=== PATIENT | female | born 1995 | race African-American/Black ===

== ENCOUNTER → 2017-10-20 19:21 | Outpatient (CLI) | payer OTHER, SELFPAY ==
[2017-10-26 10:12] LABS: HPV APTIMA, High Risk Negative (Negative)
== END ==
PROVIDERS: Family Provider Internal Medicine; PCP Internal Medicine; Visit Provider Obstetrics & Gynecology
DX: Z12.4 Encounter for screening for malignant neoplasm of cervix (principal)
CPT/HCPCS: 88175; G0145

== ENCOUNTER → 2018-06-01 15:29 | Outpatient (CLI) | payer OTHER, SELFPAY ==
[2018-05-31 16:33] VITALS: BMI 17.2
[2018-06-01 16:53] LABS: ALB/GLOB Ratio 1.3 RATIO (0.9-2.4); AST(SGOT) 20 U/L (15-37); Alanine Aminotransfer ALT/SGPT 33 U/L (13-56); Albumin, Serum 4.3 g/dL (3.2-5.0); Alkaline Phosphatase 69 U/L (45-117); Anion Gap 9 (5-15); BUN 8 mg/dL (7-18); BUN/Creat Ratio 10.5 RATIO (10-20); Calcium,Total 8.8 mg/dL (8.5-10.1); Chloride 108 mmol/L (98-107); Creatinine, Serum 0.76 mg/dL (0.55-1.02); EST Glomerular Filtration Rate 98 mL/min (>60); Est Glom Filt Rate - Afr Amer 119 mL/min (>60); Globulin 3.2 g/dL (2.2-4.2); Glucose 79 mg/dL (74-106); Potassium 3.6 mmol/L (3.5-5.1); Protein, Total 7.5 g/dL (6.4-8.2); Sodium Level 141 mmol/L (136-145); Thyroid Stim Hormone (TSH) 0.76 uIU/mL (0.358-3.74)
[2018-06-01 19:44] LABS: Absolute Lymphocyte Count 0.74 X10^3/ul (0.83-4.51); Absolute Neutrophil Count 3.8 X10^3/uL (2.0-7.7); Basophil# 0.01 X10^3/uL; Basophil% 0.2 % (0-1); Eosinophil# 0.03 X10^3/uL; Eosinophils% 0.6 % (0-5); Hematocrit 44.4 % (37-47); Hemoglobin 15.2 g/dl (12.0-15.0); Lymphocyte # 0.74 X10^3/ul (4.0); Lymphocyte % 14.3 % (19-41); Mean Corp Hgb Conc 34.2 g/gl (32-36); Mean Corpuscular Hgb 31.6 pg (27.0-32.0); Mean Corpuscular Volume 92.3 fL (81-99); Mean Platelet Vol. 9.3 fl (6.2-12.0); Monocyte# 0.57 X10^3/uL; Neutrophil # 3.83 X10^3/uL (2.7-7.7); Neutrophil % 73.7 % (47-70); Platelet Count 147 K/mm3 (150-450); RBC Distribution Width CV 13.3 % (11.6-14.6); RBC Distribution Width SD 44.9 fl (35.1-43.9); Red Blood Count 4.81 M/mm3 (4.2-5.4); White Blood Count 5.2 K/mm3 (4.4-11.0)
[2018-06-01 19:57] LABS: POSITIVE COUNT NO; POSITIVE DIFFERENTIAL NO; POSITIVE MORPHOLOGY NO
== END ==
PROVIDERS: Family Provider Family Medicine; PCP Family Medicine; Referring Provider Family Medicine; Visit Provider Family Medicine
DX: R53.83 Other fatigue (principal)
CPT/HCPCS: 36415; 80053; 84443; 85025

== ENCOUNTER → 2018-06-29 16:56 | Outpatient (CLI) | payer OTHER, SELFPAY ==
[2018-06-29 15:15] VITALS: BMI 17.6
== END ==
PROVIDERS: Family Provider Family Medicine; PCP Family Medicine; Referring Provider Obstetrics & Gynecology; Visit Provider Obstetrics & Gynecology
DX: N75.0 Cyst of Bartholin's gland (principal)
CPT/HCPCS: 87070; 87077; 87205

== ENCOUNTER → 2018-07-20 13:19 | Outpatient (CLI) | payer OTHER, SELFPAY ==
[2018-05-31 16:33] VITALS: BMI 17.2
[2018-06-29 15:15] VITALS: BMI 17.6
--- NOTE | 2018-07-20 13:31 | CT_ITS ---
STUDY: CT CHEST WITHOUT CONTRAST REASON FOR EXAM: Female, 22 years old. Calcium scoring. Family history of [place]. Over read examination. RADIATION DOSAGE (If Supplied By Facility): CTDIvol = ( 12.19 ) mGy, DLP = ( 195.04 ) mGycm TECHNIQUE: Transaxial imaging was performed without the administration of intravenous contrast material. Individualized dose optimization techniques were used for this CT. COMPARISON: None. FINDINGS: The lungs are normal. There is no demonstrated pleural abnormality. Normal heart and pericardium. Normal mediastinum. Normal hilar regions. Normal unenhanced pulmonary arteries. Normal aorta arch and descending thoracic aorta. Normal osseous structures. There is no demonstrated abnormality of the visualized upper abdomen. CT/Limited Chest CT w/CCTA IMPRESSION: Normal unenhanced CT Chest examination. Electronically Signed: Pasha Larson MD at 10:52 EST , Service support ,
[2018-07-20 13:43] VITALS: BP 113/54; PULSE 44; RESP 16; O2SAT 100; BMI 16.9
--- NOTE | 2018-07-20 14:00 | ECHOD_ITS ---
Reason For Study: Abn EKG Procedure This was a 2D Doppler, Color Flow transthoracic echocardiogram. Exam performed in department. Left Ventricle Normal LV size. Left ventricular systolic function is normal. The estimated ejection fraction is 60 %. No evidence for diastolic dysfunction. No regional wall motion abnormalities noted. Right Ventricle Normal RV size. Normal systolic function. Atria Normal left atrium. Normal right atrium. Mitral Valve Mild mitral valve prolapse. Mild (1+) eccentric mitral valve insufficiency. Tricuspid Valve Normal tricuspid valve. Mild tricuspid valve insufficiency. Pulmonary artery systolic pressure is 30 mmHg. Aortic Valve Normal aortic valve. Trisinus/trileaflet aortic valve. Pulmonic Valve Normal pulmonic valve. Great Vessels Normal aortic root. The pulmonary artery is normal size. Normal inferior vena cava. Pericardium/Pleural No pericardial effusion. MMode/2D Measurements & Calculations LVIDd: 4.6 cm IVSd: 0.84 cm Ao root diam: 2.0 cm LVIDs: 3.0 cm LVPWd: 0.92 cm RVDd: 3.5 cm FS: 34.1 % LAV(MOD-bp): 40.6 ml LVAd ap4: 26.8 cm2 SV(MOD-sp4): 57.1 ml LAV(MOD-bp) Indexed: 28.0 ml/m2 EDV(MOD-sp4): 86.8 ml LAV(MOD-sp2): 41.2 ml EDV(sp4-el): 90.1 ml LAV(MOD-sp4): 29.6 ml LVAs ap4: 14.3 cm2 ESV(MOD-sp4): 29.8 ml ESV(sp4-el): 29.7 ml EF(MOD-sp4): 65.7 % EF(sp4-el): 67.1 % SV(sp4-el): 60.4 ml LA A4 area: 13.9 cm2 LA dimension(2D): 3.3 cm RA A4 area: 9.8 cm2 Doppler Measurements & Calculations MV E max tariq: 74.7 cm/sec Lat Peak E' Tariq: 11.7 cm/sec Med Peak E' Tariq: 9.6 cm/sec MV A max tariq: 50.2 cm/sec E/E' lat: 6.4 E/E' med: 7.8 MV E/A: 1.5 Ao V2 max: 110.0 cm/sec LV V1 max: 97.0 cm/sec PA V2 max: 106.4 cm/sec Ao max P.8 mmHg LV V1 max P.8 mmHg Ao V2 mean: 77.5 cm/sec Ao mean P.7 mmHg Ao V2 VTI: 25.8 cm TR max tariq: 254.7 cm/sec TR max P.9 mmHg Interpretation Summary Normal LV size. Left ventricular systolic function is normal. The estimated ejection fraction is 60 %. No evidence for diastolic dysfunction. Mild mitral valve prolapse. Mild (1+) eccentric mitral valve insufficiency. Ordering Physician: Alisa Justin Referring Physician: Alisa Justin Performed By: Cecelia Jackson, JENNIFER, RVT
--- NOTE | 2018-07-20 15:23 | CA.SCORE ---
Calcium Scoring Date of Study:: 07/20/18 Coronary Calcium Scoring: Coronary calcium scoring. High-resolution computed tomographic imaging of the chest was performed on 07/20/2018 with particular attention paid to the coronary arteries. Images from the examination were analyzed for the presence and extent of coronary artery calcification using the coronary calcification quantification software. The patient tolerated the procedure well there were no complications. The results of the coronary consultation analysis are provided below. Coronary artery score Left main score 0 Left anterior descending artery score 0 Left circumflex artery score 0 Right coronary artery score 0 Total Agagston score 0 Based on the above there is no identifiable atherosclerotic plaque noted patient is at very low atherosclerotic cardiovascular risk.
== END ==
PROVIDERS: Family Provider Family Medicine; PCP Family Medicine; Referring Provider Internal Medicine; Visit Provider Internal Medicine
DX: R94.31 Abnormal electrocardiogram [ECG] [EKG] (principal); Z82.49 Family history of ischemic heart disease and other diseases of the circulatory system
CPT/HCPCS: 75571; 76380; 93306

== ENCOUNTER → 2018-08-17 14:11 | Outpatient (CLI) | payer OTHER, SELFPAY ==
[2018-07-20 13:43] VITALS: BMI 16.9
--- NOTE | 2018-08-17 14:14 | RAD_ITS ---
STUDY: X-RAY - RIGHT ANKLE REASON FOR EXAM: Female, 23 years old. Pain following a twisting injury. TECHNIQUE: 3 view(s) of the ankle. COMPARISON: None. FINDINGS: Normal visualized distal tibia and fibula. Normal medial and lateral malleoli. Normal tibiotalar articulation and ankle mortise. Normal visualized talus and calcaneus. The visualized subtalar, talonavicular, calcaneocuboid and tarsal articulations are normal. The soft tissue structures are unremarkable. RAD/Ankle min 3 Views IMPRESSION: Normal x-ray examination of the ankle. Electronically Signed: Pasha Larson, at 14:35 EDT , Service support ,
== END ==
PROVIDERS: Family Provider Family Medicine; PCP Family Medicine; Referring Provider Nurse Practitioner; Visit Provider Nurse Practitioner
DX: S93.401A Sprain of unspecified ligament of right ankle, initial encounter (principal)
CPT/HCPCS: 73610

== ENCOUNTER → 2018-11-20 | Outpatient (CLI) | payer OTHER, SELFPAY ==
[2018-11-20 11:10] VITALS: BMI 16.9
[2018-11-20 13:42] LABS: HIV - WCH Non-Reactive (Nonreactive)
[2018-11-20 17:27] LABS: Chlamydia Trachomatis by PCR Negative (Negative); Neisserai gonorrhoeae by PCR Negative (Negative); Probe Check PASS; Sample Adequacy Control PASS; Specimen Processing Control PASS
== END | disposition home or self-care (01) ==
PROVIDERS: Family Provider Family Medicine; PCP Family Medicine; Referring Provider Obstetrics & Gynecology; Visit Provider Obstetrics & Gynecology
DX: Z11.3 Encounter for screening for infections with a predominantly sexual mode of transmission (principal)
CPT/HCPCS: 36415; 86703; 87491; 87591

== ENCOUNTER 2018-12-27 12:39 | Day surgery (SDC) | payer OTHER, SELFPAY ==
[2018-11-20 11:10] VITALS: BMI 16.9
[2018-12-18 16:21] VITALS: BMI 16.9
--- NOTE | 2018-12-26 22:14 | HP.PCM_ITS ---
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 Is patient in pain?: No Allergies No Known Allergies Allergy (Verified 12/18/18 16:20) Medications multivitamin tablet 1 tab PO QDAY 10/20/17 [History Confirmed 12/18/18] omega 5-emk-yal-fish oil 1,000 mg (120 mg-180 mg) capsule cap PO cap 05/31/18 [History Confirmed 12/18/18] eszopiclone 1 mg tablet 1 mg PO QHS #20 tab 11/20/18 [Rx Confirmed 12/18/18] norethindrone 1 mg-ethinyl estradiol 20 mcg (24)-iron 75 mg (4) tablet 1 tab PO QDAY #28 tab 11/20/18 [Rx Confirmed 12/18/18] Is last menstrual period known: No Post menopausal: No Patient : No : No [facility] Medical History Heart murmur (Chronic) Seasonal allergies (Chronic) History of seizures (Acute) Migraines (Acute) Family History Uncle Cancer Grandmother Diabetes Heart disease Grandfather Cancer Heart disease Myocardial infarction Father Diabetes Mother Asthma Aunt Breast cancer maternal aunt Social History (Updated 12/19/18 @ 04:19 by Marya Diehl MD) Smoking Status: Never smoker alcohol intake: current details: occasionally substance use type: does not use caffeine: Yes what type of physical activity do you participate in: running frequency: 3-4 times per week seatbelt use: sometimes do you feel safe at home: Yes additional social history: Single- Patient works at [employer]. Patient is also in grad school HPI pre op: Details: JARETT MAHONEY is a 23 year old who presents for preoperative visit. she is having a bartholin's gland cyst marsupilization. Pregancy History 0 Elective abortions Hx Para Spontaneous abortions Hx # Term Pregnancies Ectopic pregnancies Hx # Pregnancies Multiple births # of living children ROS Const Constitutional: Reports as per HPI; denies fatigue, increased appetite, poor appetite, weight gain or weight loss Cardio Card: Denies chest pain Resp Resp: Denies cough or dyspnea GI GI: Reports as per HPI; denies abdominal pain, bloating, constipation, nausea or vomiting : Reports as per HPI and other; denies difficulty urinating, painful urination, blood in urine, nipple discharge, pelvic pain, prolapse symptoms, urinary frequency, urinary incontinence, urinary urgency, vaginal discharge, vaginal dryness, vaginal odor or vaginal itching Skin Skin/Breast: Denies nipple discharge Psych Psych: Denies anxiety or depression Exam Const General: cooperative, healthy appearing, comfortable, no acute distress, well developed, well groomed HENMT Head: normal to inspection, normocephalic Ears: hearing grossly normal bilaterally, external ears normal Nose: external nose normal Face and sinus: normal facial exam Neck Neck: normal visual inspection, full ROM, no lymphadenopathy Thyroid: thyroid normal Chest Chest palpation & inspection: normal inspection of the chest Breast inspection: normal inspection of the breasts, normal inspection of the axillae Breast palpation: normal palpation of the breasts, normal palpation of the axillae, no axillary lymphadenopathy Resp Effort & Inspection: normal respiratory effort GI Inspection: normal to inspection, non-distended Palpation: soft, no hepatosplenomegaly, no guarding General: bladder normal to palpation External Female Exam: normal external appearance, normal appearance of the urethra, external lesions, bartholin cyst (left side non tender 4cm) Urethra: normal appearance of the urethra Speculum Exam - Vagina: normal appearance of the vagina, normal vaginal discharge Speculum Exam - Cervix: normal appearance of the cervix, no cervical discharge, no lesions, nontender Bimanual Exam- Vagina & Uterus: bladder normal to palpation, No cervical tenderness Bimanual Exam- Adnexa, other: normal adnexae, no adnexal masses, adnexae non- tender Skin General: no rashes or lesions noted Neuro General: alert, moves all extremities, no focal motor deficits Extrem General: normal to inspection, no pedal edema Psych Appearance: grossly normal Mental Status: mental status grossly normal Affect: normal affect Speech and Movement: speech and movement normal Attitude: cooperative Assessment & Plan Problems 1. Bartholin gland cyst N75.0 recurrent, plan marsupilization Plan discussed with patient risk of bleeding, infection, scarring, dyspareunia. proceed with surgery. Coding Level of Care Code No Charge Diagnoses Bartholin gland cyst N75.0 UPDATE- I have seen the patient and performed any clinically relevant updates to the history and physical exam. Marya Diehl MD
[2018-12-27 13:09] VITALS: BP 111/70; PULSE 61; RESP 18; TEMP 37.1; O2SAT 100; BMI 17.9
[2018-12-27 13:11] LABS: Internal QC Validated? YES +Cl - CLEAR BKGD; Pregnancy, Urine Negative Negative
[2018-12-27 13:18] LABS: Hematocrit 42.8 % (37-47); Hemoglobin 15.1 g/dL (12.0-15.0); Mean Corp Hgb Conc 35.3 g/dL (32-36); Mean Corpuscular Hgb 32.6 pg (27.0-32.0); Mean Corpuscular Volume 92.4 fL (81-99); Mean Platelet Vol. 9.1 fl (6.2-12.0); Platelet Count 187 K/mm3 (150-450); RBC Distribution Width CV 12.9 % (11.6-14.6); RBC Distribution Width SD 44.3 fl (35.1-43.9); Red Blood Count 4.63 M/mm3 (4.2-5.4); White Blood Count 4.1 K/mm3 (4.4-11.0)
[2018-12-27] MEDS: Bupiv/Epi 0.25% 30 ML Vial (15:02)
[2018-12-27] MEDS: Bacitracin 500 UNITS/GM PACKET (15:27)
[2018-12-27 15:37] VITALS: BP 111/70; BP 114/72; PULSE 59; RESP 16; TEMP 36.7; O2SAT 100
[2018-12-27 15:45] VITALS: BP 111/70; BP 122/83; PULSE 82; RESP 16; O2SAT 100
[2018-12-27 16:00] VITALS: BP 111/70; BP 126/63; PULSE 70; RESP 16; O2SAT 99
--- NOTE | 2018-12-27 16:11 | PCM.OPRPT ---
Problem List (1) Bartholin gland cyst Status: Acute Comment: recurrent, plan marsupilization Report of Operation Date of Procedure: 12/27/18 Pre-Operative Diagnosis: bartholins gland cyst Post-Operative Diagnosis: same Surgery/Procedure Performed:: bartholin's gland maruspilization Description of Surgical Findings:: left multicystic chronically enlarged gland Type of Anesthesia:: General Special Medications: none Specimen's removed: none Drains: none Estimated Blood Loss (mL): 50 Fluids Replaced: crystalloid Description of Procedure: patient Was taken the operating room and placed under general anesthesia was prepped and draped in normal sterile fashion in the dorsolithotomy position. The area over the gland was injected with Marcaine and an elliptical incision made to unroofed the area. 3 separate areas of the gland was identified and opened and retained mucoid material removed. No areas of infection or solid material was found. There was some scarring in the base of the tissue but all areas were opened and the cyst wall was sutured to the surrounding vaginal mucosa to marsupialize the area. Excellent hemostasis was noted no complications 3-0 Vicryl repeat was used. Grafts/Implants Used: none - Complications none - Admit VTE Documentation VTE Present on Admission: No
[2018-12-27 16:13] VITALS: BP 111/70; BP 119/73; PULSE 59; RESP 16; TEMP 36.8; O2SAT 100
--- NOTE | 2018-12-27 16:21 | DCINST_ITS ---
Discharge Diet: No Restrictions Discharge Activity: Return to Normal Activity, May Shower, May Take a Tub Bath May resume sexual activity in: 4 weeks Call your doctor if you observe: Fever of 101 or Higher, Coldness, Increased Pain, Shortness of breath, Dizziness, Uncontrolled pain Cleanse incision/area with: Soap & Water Allergies/Adverse Reactions: Allergies No Known Allergies Allergy (Verified 12/20/18 09:01) Medications to take at Discharge multivitamin tablet 1 tab PO BID 10/20/17 norethindrone 1 mg-ethinyl estradiol 20 mcg (24)-iron 75 mg (4) tablet 1 tab PO QDAY #28 tab 11/20/18 Eszopiclone 1 mg PO QHS PRN 12/20/18 Naproxen [Naprosyn] 250 - 500 mg PO Q8H PRN PRN #30 tab 12/27/18 Oxycodone HCl/Acetaminophen [Percocet 5-325] 1 - 2 tab PO Q4H PRN PRN 7 Days #15 tab 12/27/18 The following prescriptions were given: Naproxen [Naprosyn] 250 - 500 mg PO Q8H PRN PRN #30 tab PRN Reason: MILD PAIN Transmission Status: Pending to [facility] Oxycodone HCl/Acetaminophen [Percocet 5-325] 1 - 2 tab PO Q4H PRN PRN 7 Days #15 tab PRN Reason: Pain Transmission Status: Sent to [facility] Primary Care Physician: Marquez Gusman DO [Primary Care Provider] - Test Results: Test results from this visit will be discussed in further detail at your follow- up appointment, if applicable. Please Follow Up With: Marya Diehl MD - [phone]
[2018-12-27 17:00] VITALS: BP 111/70; BP 133/83; PULSE 60; RESP 18; TEMP 37; O2SAT 100
== END 2018-12-27 17:00 | disposition home or self-care (01) ==
LOC: SDC 12:42 → AC 12:43
PROVIDERS: Family Provider Family Medicine; PCP Family Medicine; Referring Provider Obstetrics & Gynecology; Visit Provider Obstetrics & Gynecology
PROC: (CPT 56740; principal; 2018-12-27 13:55)
DX: N75.0 Cyst of Bartholin's gland (principal); R56.9 Unspecified convulsions; Z79.899 Other long term (current) drug therapy
CPT/HCPCS: 00940; 56440; 36415; 81025; 85027; 86850; 86900; J7120; J2405